=== PATIENT | male | born 1970 | race Caucasian/White ===

== ENCOUNTER 2022-01-25 14:28 | Outpatient (REF) | payer BC, SELFPAY ==
--- NOTE | ~2022-01-25 | US_ITS ---
EXAMINATION: ULTRASOUND ARTERIAL DUPLEX LOWER EXTREMITY RIGHT CLINICAL INFORMATION: Pain COMPARISON: None TECHNIQUE: Doppler color and grayscale evaluation of the veins in the right lower extremity FINDINGS: The visible luminal narrowing or vessel wall calcification is seen. The right common femoral artery is patent with normal peak systolic velocity and waveform. The right profunda is patent with normal peak systolic velocity and waveform. The right superficial femoral artery is patent with normal peak systolic velocities and waveforms. The right popliteal artery is patent with normal peak systolic velocity and waveform. The visualized right posterior tibial artery is patent with normal peak systolic velocity and waveform. There is no evidence of stenosis. US/US arterial duplex LE RT IMPRESSION: Normal arterial noninvasive exam of the right lower extremity.
== END 2022-01-25 14:29 | disposition home or self-care (01) ==
LOC: HO.US 14:28
PROVIDERS: PCP Internal Medicine; Visit Provider Internal Medicine
DX: M79.604 Pain in right leg (principal); I73.9 Peripheral vascular disease, unspecified; R07.9 Chest pain, unspecified
CPT/HCPCS: 93926

== ENCOUNTER 2022-01-26 06:33 | Outpatient (REF) | payer BC, SELFPAY ==
[2022-01-26 11:03] LABS: MANUAL DIFF FLAG NO
[2022-01-26 11:21] LABS: Alanine Aminotransferase 25 U/L (0-40); Albumin Level 4.3 g/dL (3.5-5.0); Alkaline Phosphatase 76 U/L (39-117); Anion Gap 12 (12-20); Aspartate Amino Transferase 22 U/L (5-37); Bilirubin Total 0.6 mg/dL (0.0-1.0); Blood Urea Nitrogen 17 mg/dL (9-16); Calcium 8.7 mg/dL (8.4-10.2); Carbon Dioxide 24 mmol/L (22-29); Chloride 105 mmol/L (96-108); Cholesterol 209 mg/dL; Estimated Glomerular Filt Rate > 60; Glucose Fasting 95 mg/dL (60-99); HDL Cholesterol 48 mg/dL; LDL Cholesterol Calculated 147 mg/dl; Potassium 4.3 mmol/L (3.3-5.1); Sodium 137 mmol/L (135-145); Total Protein 6.9 g/dL (6.5-8.0); Triglycerides 72 mg/dL
[2022-01-26 11:23] LABS: Basophils Absolute Auto 0.1 X10*3/uL (0.0-0.2); Basophils Percent Auto 0.8 % (0-2); Eosinophils Absolute Auto 0.4 X10*3/uL (0.0-0.4); Eosinophils Percent Auto 6.6 % (0-4); Hematocrit 41.6 % (42.0-52.0); Hemoglobin 14.7 g/dl (14.0-18.0); Imm Gran Abs Auto 0.01 X10*3/uL (0.00-0.03); Imm Gran Pct Auto 0.2 % (0.0-0.4); Lymphocytes Absolute Auto 2.1 X10*3/uL (1.2-4.9); Lymphocytes Percent Auto 33.1 % (20-40); Mean Corpuscular HGB Conc 35.3 g/dl (31.0-36.0); Mean Corpuscular Volume 87.8 fL (80.0-98.0); Mean Platelet Volume 9.4 fL (9.4-12.4); Monocytes Absolute Auto 0.9 X10*3/uL (0.1-1.2); Monocytes Percent Auto 14.2 % (2-11); Neutrophils Absolute Auto 2.9 x10*3/uL (2.0-8.3); Neutrophils Percent Auto 45.1 % (45-73); Platelet Count 179 X10*3/uL (160-400); Red Blood Count 4.74 X10*6/uL (4.60-5.80); Red Cell Distribution Width 11.7 % (11.0-16.0); White Blood Count 6.3 X10*3/uL (4.8-10.8)
[2022-01-26 11:44] LABS: PSA,Total (Free>4and<10) 0.43 ng/mL (0.00-4.00)
== END 2022-01-26 06:34 | disposition home or self-care (01) ==
LOC: HO.HMGCLDS 06:33
PROVIDERS: Visit Provider Internal Medicine
DX: Z12.5 Encounter for screening for malignant neoplasm of prostate (principal); M79.604 Pain in right leg; R07.9 Chest pain, unspecified
CPT/HCPCS: 36415; 80053; 80061; 84153; 85025

== ENCOUNTER 2022-02-28 15:57 | Outpatient (REF) | payer BC, SELFPAY ==
--- NOTE | ~2022-02-28 | XR_ITS ---
EXAMINATION: LUMBAR SPINE AND RIGHT KNEE CLINICAL INFORMATION: Right knee pain. Sciatica. COMPARISON: None TECHNIQUE: Lumbar spine 3 views right knee 2 views. FINDINGS: LUMBAR SPINE: There is maintained lumbar lordosis. The vertebral heights, alignment and disc heights are normal. No visible acute fracture, dislocation or subluxation seen. There is mild ventral endplate spondylosis. No lytic or sclerotic process seen. The soft tissues are normal. RIGHT KNEE: The tricompartment joint space is maintained normal. No bony erosive changes seen. There are no loose bodies. No abnormal suprapatellar joint effusion. XR/XR knee RT 2V IMPRESSION: Unremarkable lumbar spine exam.
--- NOTE | ~2022-02-28 | XR_ITS ---
EXAMINATION: LUMBAR SPINE AND RIGHT KNEE CLINICAL INFORMATION: Right knee pain. Sciatica. COMPARISON: None TECHNIQUE: Lumbar spine 3 views right knee 2 views. FINDINGS: LUMBAR SPINE: There is maintained lumbar lordosis. The vertebral heights, alignment and disc heights are normal. No visible acute fracture, dislocation or subluxation seen. There is mild ventral endplate spondylosis. No lytic or sclerotic process seen. The soft tissues are normal. RIGHT KNEE: The tricompartment joint space is maintained normal. No bony erosive changes seen. There are no loose bodies. No abnormal suprapatellar joint effusion. XR/XR lumbar spine 2-3V IMPRESSION: Unremarkable lumbar spine exam.
--- NOTE | ~2022-02-28 | XR_ITS ---
EXAMINATION: XR CHEST CLINICAL INFORMATION: Chest pain COMPARISON: None TECHNIQUE: 2 views of the chest were obtained. FINDINGS: Very slight bronchial thickening which can be seen in setting of infectious/inflammatory etiology. No pneumothorax. Trachea is midline. Cardiomediastinal silhouette is not enlarged. No large pleural effusion. Degenerative changes of the thoracolumbar spine. Soft tissues are unremarkable XR/XR chest 2V IMPRESSION: Very slight bronchial thickening which can be seen in setting of infectious/inflammatory etiology.
== END 2022-02-28 15:58 | disposition home or self-care (01) ==
LOC: HO.HMGCX 15:57
PROVIDERS: PCP Internal Medicine; Visit Provider Internal Medicine
DX: R07.9 Chest pain, unspecified (principal); I73.9 Peripheral vascular disease, unspecified; M54.30 Sciatica, unspecified side; M25.561 Pain in right knee
CPT/HCPCS: 71046; 72100; 73560

== ENCOUNTER 2023-02-04 06:01 | Outpatient (REF) | payer BC, SELFPAY ==
[2023-02-04 11:42] LABS: Cholesterol 211 mg/dL; HDL Cholesterol 51 mg/dL; LDL Cholesterol Calculated 141 mg/dl; Triglycerides 96 mg/dL
[2023-02-07 05:44] LABS: Lyme Abs Screen <0.90 index
== END 2023-02-04 06:02 | disposition home or self-care (01) ==
LOC: HO.HMGCLDS 06:01
PROVIDERS: PCP Internal Medicine; Visit Provider Internal Medicine
DX: Z00.00 Encounter for general adult medical examination without abnormal findings (principal); T14.8XXA Other injury of unspecified body region, initial encounter; W57.XXXA Bitten or stung by nonvenomous insect and other nonvenomous arthropods, initial encounter
CPT/HCPCS: 36415; 80061; 86617; 86618

== ENCOUNTER 2023-08-01 09:56 | Outpatient (AMB) | payer BC, SELFPAY ==
--- NOTE | 2023-08-01 09:59 | MHC.PC.OV ---
Vital Signs 08/01/23 10:00 Height 5 ft 6.14 in Weight 220 lb BMI 35.4 BP 124/72 Blood Pressure Location Lt brachial Position Sitting Pulse 102 H Pulse Source Pulse Oximeter Pulse Oximetry (%) 98 Oxygen Delivery Method Room Air Intake Visit Reasons: lump/Mole on head Intake Note: Pt is here today for a sick visit. Pt c/o hearing problem and mole on the R side of his head. Allergies No Known Allergies Allergy (Verified 08/01/23 10:02) Medication List - Last Reconciled 08/01/23 by Vinita Stone MD No Known Home Meds Tobacco use date assessed: 08/01/23 Dental Screening Dental Screen Date: 08/01/23 Did you have a dental visit in the last 12 months?: Yes Did you have a dental problem in the last 6 months where you did not have access to dental care?: No Was dental information given to patient?: Patient has dentist HPI lump/Mole on head HPI Details Patient complains of irritated skin growth the top of his head for 6 months. Patient reports decreased hearing in the left ear for few months. Patient denies change in balance, headaches, ear pain or discharge. [facility] Family History Mother Diabetes Father No problems noted. Sister Breast cancer Social History Housing: House Patient Tobacco Use Status: Never used Tobacco e-Cigarette/Vaping Use: Never Used Current occupational status: employed Cognitive needs: No Hearing needs: No Vision needs: No Questionnaire PHQ-9 Over the last 2 weeks, how often have you been bothered by any of the following problems? 1. Little interest or pleasure in doing things: not at all 2. Feeling down, depressed, or hopeless: not at all 3. Trouble falling or staying asleep, or sleeping too much: not at all 4. Feeling tired or having little energy: not at all 5. Poor appetite or overeating: not at all 6. Feeling bad about yourself - or that you are a failure or have let yourself or your family down: not at all 7. Trouble concentrating on things, such as reading the newspaper or watching television: not at all 8. Moving or speaking so slowly that other people could have noticed. Or the opposite - being so fidgety or restless that you have been moving around a lot more than usual: not at all 9. Thoughts that you would be better off or of hurting yourself in some way: not at all Total score: 0 Depression Screening Interpretation: Negative Depression Screening Done: Yes Source: Developed by Drs. London Crawley, Bri Batres, Tonio Schmidt and colleagues, with an educational nafisa from [employer]. Thrive Questionnaire Date Thrive assessed: 08/01/23 I am a: Patient What is your living situation today?: I have a steady place to live Within the past 12 months, did the food you bought not last and you didn't have the money to get more?: Never true Within the past 12 months, did you worry whether your food would run out before you got money to buy more?: Never true Do you have trouble paying for medicines?: No Do you have trouble getting transportation to medical appointments?: No Do you have trouble paying your heating and electricity bill?: No Do you have trouble taking care of your child, family member or friend?: No Do you have trouble with day-to-day activities such as bathing, preparing meals, shopping, managing finances, etc.?: No Are you currently unemployed and looking for a job?: No Are you interested in more education?: No Please select the resources that you would like help with: None Currently or been in a relationship where the following occur: no concerns reported AUDIT C Alcohol Use Questionnaire (AUDIT-C) 1. How often do you have a drink containing alcohol?: Never 3. How often do you have six or more drinks on one occasion?: Never Total Score: 0 MURRAY-7 AMB Questionnaire MURRAY-7 Date MURRAY - 7 assessed: 08/01/23 Feeling nervous, anxious, or on edge: 0 = Not at all Not being able to stop or control worryin = Not at all Worrying too much about different things: 0 = Not at all Trouble relaxin = Not at all Being so restless that it is hard to sit still: 0 = Not at all Becoming easily annoyed or irritable: 0 = Not at all Feeling afraid as if something awful might happen: 0 = Not at all Total MURRAY-7 score (0-4 normal; 5-9 mild; 10-14 moderate; 15-21 severe): 0 Source: Developed by Drs. London Crawley, Bri Batres, Tonio Schmidt and colleagues, with an educational nafisa from [employer]. Review of Systems Const All systems reviewed & are unremarkable except as noted in HPI and below Reports no additional complaints Eyes Reports no additional complaints ENT Reports no additional complaints Card Reports no additional complaints Resp Reports no additional complaints GI Reports no additional complaints Reports no additional complaints Physical exam (Primary Care) Vital Signs: Last Vital Signs Pulse 102 H 08/01/23 10:00 BP 124/72 08/01/23 10:00 Pulse Ox 98 08/01/23 10:00 Oxygen Delivery Method Room Air 08/01/23 10:00 BMI result Body Mass Index 35.4 Tobacco/Smoking Status: Tobacco use Status Tobacco use date assessed 08/01/23 08/01/23 10:05 Patient Tobacco Use Status Never used Tobacco 08/01/23 10:05 e-Cigarette/Vaping Use Never Used 08/01/23 10:05 PHQ-9: PHQ-9 Score PHQ-9: Total score 0 08/01/23 10:07 Depression Screening Interpretation: Negative Thrive Assessment: Date of Thrive Assessment Date Thrive assessed 08/01/23 08/01/23 10:07 Currently or been in a relationship where the following occur: no concerns reported Const General: no acute distress HENMT Other: 1 cm scaly irritated lesion on the frontal hair line Ears: TM's normal bilaterally, Robert (lateralized to Left) and Rinne test Face and sinus: Yes normal facial exam Neck Neck: Yes no lymphadenopathy and Yes supple Resp Effort & Inspection: normal respiratory effort Auscultation: clear to auscultation bilaterally Cardio Rhythm: regular rhythm Heart sounds: S1 normal heart sound present and S2 normal heart sound present Assessment and Plan Assessment & Plan (1) Irritated nevus: Code(s): D22.9 - Melanocytic nevi, unspecified Plan: Referred to dermatology (2) Hearing loss: Code(s): H91.90 - Unspecified hearing loss, unspecified ear Plan: Obtain hearing evaluation (3) Annual physical exam: Code(s): Z00.00 - Encounter for general adult medical examination without abnormal findings Plan: Patient will return for physical in 6 months with a fasting labs before Orders: Orders UA w Microscopic 6 Months Z00.00 - Encounter for general adult medical examination without abnormal findings Lipid Panel 6 Months Z00.00 - Encounter for general adult medical examination without abnormal findings Comprehensive [place]. Panel Fast 6 Months Z00.00 - Encounter for general adult medical examination without abnormal findings Complete Blood Count Auto Diff 6 Months Z00.00 - Encounter for general adult medical examination without abnormal findings PSA,Total (Free>4and<10) 6 Months Z00.00 - Encounter for general adult medical examination without abnormal findings Referrals Dermatology Referral D22.9 - Melanocytic nevi, unspecified Speech and Hearing Referral H91.90 - Unspecified hearing loss, unspecified ear Coding Level of Care Code Est Pt Level 3 (30890) Diagnoses Irritated nevus D22.9 Hearing loss H91.90 Annual physical exam Z00.00
[2023-08-01 10:00] VITALS: BP 124/72; PULSE 102; O2SAT 98; BMI 35.4
== END 2023-08-01 10:42 | disposition home or self-care (01) ==
PROVIDERS: PCP Internal Medicine; Visit Provider Internal Medicine
DX: D22.9 Melanocytic nevi, unspecified (principal); H91.90 Unspecified hearing loss, unspecified ear; Z00.00 Encounter for general adult medical examination without abnormal findings
CPT/HCPCS: 99213

== ENCOUNTER 2023-11-25 14:54 | Outpatient (REF) | payer BC, SELFPAY | END 2023-11-25 14:55 | disposition home or self-care (01) | LOC: HO.SH 14:54 | PROVIDERS: Visit Provider Internal Medicine | DX: Z01.118 Encounter for examination of ears and hearing with other abnormal findings (principal); H90.3 Sensorineural hearing loss, bilateral | CPT/HCPCS: 92553; 92567 ==

== ENCOUNTER 2024-01-21 06:01 | Outpatient (REF) | payer BC, SELFPAY ==
[2024-01-21 11:09] LABS: MANUAL DIFF FLAG NO
[2024-01-21 11:31] LABS: Basophils Percent Auto 0.5 % (0-2); Eosinophils Absolute Auto 0.6 X10*3/uL (0.0-0.4); Eosinophils Percent Auto 7.4 % (0-4); Hematocrit 42.6 % (42.0-52.0); Hemoglobin 15.2 g/dl (14.0-18.0); Imm Gran Abs Auto 0.02 X10*3/uL (0.00-0.03); Imm Gran Pct Auto 0.3 % (0.0-0.4); Lymphocytes Percent Auto 26.5 % (20-40); Mean Corpuscular HGB Conc 35.7 g/dl (31.0-36.0); Mean Corpuscular Volume 86.9 fL (80.0-98.0); Monocytes Absolute Auto 0.9 X10*3/uL (0.1-1.2); Monocytes Percent Auto 12.2 % (2-11); Neutrophils Percent Auto 53.1 % (45-73); Platelet Count 181 X10*3/uL (160-400); Red Cell Distribution Width 11.9 % (11.0-16.0); White Blood Count 7.5 X10*3/uL (4.8-10.8)
[2024-01-21 11:32] LABS: Appearance Urine Clear; Color Urine Yellow; Glucose Urine UA Negative (Negative); Leukocyte Esterase Urine Negative (Negative); Nitrite Urine Negative (Negative); Specific Gravity - Urine 1.025 (1.005-1.025); Urine Blood Negative (Negative); Urine Ketones Negative (Negative); Urine Protein Negative (Neg-Trace)
[2024-01-21 11:39] LABS: Bacteria Urine None Seen (None Seen); Hyaline Casts Urine 0-2 /LPF (0-2); RBC Urine 0-2 /HPF (0-2); Squamous Epithelial Cell Urine 0-2 /HPF (0-2); WBC Urine 0-5 /HPF (0-5)
[2024-01-21 11:56] LABS: PSA,Total (Free>4and<10) 0.43 ng/mL (0.00-4.00)
[2024-01-21 12:08] LABS: Alanine Aminotransferase 40 U/L (0-40); Albumin Level 4.5 g/dL (3.5-5.0); Alkaline Phosphatase 93 U/L (39-117); Anion Gap 13 (12-20); Aspartate Amino Transferase 36 U/L (5-37); Bilirubin Total 0.6 mg/dL (0.0-1.0); Blood Urea Nitrogen 18 mg/dL (9-16); Calcium 9.4 mg/dL (8.4-10.2); Carbon Dioxide 26 mmol/L (22-29); Chloride 106 mmol/L (96-108); Cholesterol 198 mg/dL (<200); Estimated Glomerular Filt Rate > 60; Glucose Fasting 102 mg/dL (60-99); HDL Cholesterol 50 mg/dL (>40); LDL Cholesterol Calculated 127 mg/dL (<100); Potassium 3.9 mmol/L (3.3-5.1); Sodium 141 mmol/L (135-145); Total Protein 7.3 g/dL (6.5-8.0); Triglycerides 107 mg/dL (<150)
== END 2024-01-21 06:02 | disposition home or self-care (01) ==
LOC: HO.HMGCLDS 06:01
PROVIDERS: PCP Internal Medicine; Visit Provider Internal Medicine
DX: Z00.00 Encounter for general adult medical examination without abnormal findings (principal); Z12.5 Encounter for screening for malignant neoplasm of prostate
CPT/HCPCS: 36415; 80053; 80061; 81001; 84153; 85025

== ENCOUNTER 2024-02-02 12:19 | Outpatient (AMB) | payer BC, SELFPAY ==
--- NOTE | 2024-02-02 12:58 | MHC.PC.OV ---
Vital Signs 02/02/24 13:00 Height 5 ft 6.14 in Weight 227 lb BMI 36.5 BP 122/80 Blood Pressure Location Lt brachial Position Sitting Pulse 97 Pulse Source Pulse Oximeter Pulse Oximetry (%) 97 Oxygen Delivery Method Room Air Intake Visit Reasons: Annual PE Intake Note: pt is here for annual PE. Cologuard 04/01/22 Allergies No Known Allergies Allergy (Verified 02/02/24 12:59) Medication List - Last Reconciled 02/02/24 by Vinita Stone MD meloxicam 15 mg PO DAILY Tobacco use date assessed: 02/02/24 Dental Screening Dental Screen Date: 08/01/23 HPI Annual PE HPI Details Patient presents for physical. He complains of intermittent lower back pain worse after lifting and bending down a lot. Patient denies pain radiating to lower extremities weakness or numbness in extremities, change in bladder or bowel function PFSH Surgical History No pertinent past surgical history Family History Mother Diabetes Father No problems noted. Sister Breast cancer Social History Housing: House Patient Tobacco Use Status: Never used Tobacco e-Cigarette/Vaping Use: Never Used Current occupational status: employed Cognitive needs: No Hearing needs: No Vision needs: No Questionnaire Thrive Questionnaire Date Thrive assessed: 08/01/23 AUDIT C Alcohol Use Questionnaire (AUDIT-C) 1. How often do you have a drink containing alcohol?: Never 3. How often do you have six or more drinks on one occasion?: Never Total Score: 0 MURRAY-7 AMB Questionnaire MURRAY-7 Date MURRAY - 7 assessed: 08/01/23 Source: Developed by Drs. London Crawley, Bri Batres, Tonio Schmidt and colleagues, with an educational nafisa from [employer]. Review of Systems Const All systems reviewed & are unremarkable except as noted in HPI and below Reports no additional complaints Eyes Reports no additional complaints ENT Reports no additional complaints Card Reports no additional complaints Resp Reports no additional complaints GI Reports no additional complaints Reports no additional complaints Physical exam (Primary Care) Vital Signs: Last Vital Signs Pulse 97 02/02/24 13:00 BP 122/80 02/02/24 13:00 Pulse Ox 97 02/02/24 13:00 Oxygen Delivery Method Room Air 02/02/24 13:00 BMI result Body Mass Index 36.5 Tobacco/Smoking Status: Tobacco use Status Tobacco use date assessed 02/02/24 02/02/24 13:02 Patient Tobacco Use Status Never used Tobacco 02/02/24 12:58 e-Cigarette/Vaping Use Never Used 02/02/24 12:58 Thrive Assessment: Date of Thrive Assessment Date Thrive assessed 08/01/23 02/02/24 12:58 Const General: no acute distress HENMT Head: Yes normal to inspection Ears: hearing grossly normal bilaterally Throat: Yes posterior oropharynx normal Eyes General: appearance normal, both eyes and all related structures Neck Neck: Yes no lymphadenopathy and Yes supple Resp Effort & Inspection: normal respiratory effort Auscultation: clear to auscultation bilaterally Cardio Rhythm: regular rhythm Heart sounds: S1 normal heart sound present and S2 normal heart sound present GI Inspection: Yes normal to inspection Palpation (GI): Soft to palpation Percussion: Yes normal to percussion Auscultation: normal bowel sounds Back/Spine/Pelvis Other: Decreased range of motion lumbar spine, straight leg rising 90 degrees bilaterally deep tendon reflexes 2+ bilaterally Assessment and Plan Assessment & Plan (1) Annual physical exam: Code(s): Z00.00 - Encounter for general adult medical examination without abnormal findings Plan: Well-balanced diet regular exercise weight loss discussed with the patient. (2) Chronic lower back pain: Code(s): M54.50 - Low back pain, unspecified; G89.29 - Other chronic pain Plan: Check x-ray of lumbar spine, PT was recommended patient declined. Lower back exercises were recommended. Meloxicam p.r.n. as prescribed Orders: Orders Hemoglobin A1c 1 Year Z00.00 - Encounter for general adult medical examination without abnormal findings XR lumbar spine 2-3V Today G89.29 - Other chronic pain, M54.50 - Low back pain, unspecified Comprehensive [place]. Panel Fast 1 Year Z00.00 - Encounter for general adult medical examination without abnormal findings Complete Blood Count Auto Diff 1 Year Z00.00 - Encounter for general adult medical examination without abnormal findings Lipid Panel 1 Year Z00.00 - Encounter for general adult medical examination without abnormal findings PSA,Total (Free>4and<10) 1 Year Z00.00 - Encounter for general adult medical examination without abnormal findings UA w Microscopic 1 Year Z00.00 - Encounter for general adult medical examination without abnormal findings Medications: New meloxicam 15 mg PO DAILY 30 tabs 0RF meloxicam 15 mg PO DAILY 30 tabs 1RF Coding Level of Care Code Est Pt Prev Care 40-64y(21028) Diagnoses Annual physical exam Z00.00 Chronic lower back pain M54.50; G89.29
[2024-02-02 13:00] VITALS: BP 122/80; PULSE 97; O2SAT 97; BMI 36.5
== END 2024-02-02 15:34 | disposition home or self-care (01) ==
LOC: HO.HMGC 12:19
PROVIDERS: PCP Internal Medicine; Visit Provider Internal Medicine
DX: Z00.00 Encounter for general adult medical examination without abnormal findings (principal); M54.50 Low back pain, unspecified; G89.29 Other chronic pain
CPT/HCPCS: 99396

== ENCOUNTER 2024-02-02 13:38 | Outpatient (REF) | payer BC, SELFPAY ==
--- NOTE | ~2024-02-02 | XR_ITS ---
EXAMINATION: XR LUMBOSACRAL SPINE CLINICAL INFORMATION: Low back pain. COMPARISON: 02/28/2022 TECHNIQUE: Three views of the lumbosacral spine. FINDINGS: Mild multilevel lumbar spondylosis with mild loss of disc space height at L4-L5 and L5-S1. Facet arthritis in the lower lumbar spine. XR/XR lumbar spine 2-3V IMPRESSION: Mild multilevel lumbar spondylosis.
== END 2024-02-02 13:39 | disposition home or self-care (01) ==
LOC: HO.HMGCX 13:38
PROVIDERS: PCP Internal Medicine; Visit Provider Internal Medicine
DX: M54.50 Low back pain, unspecified (principal); G89.29 Other chronic pain
CPT/HCPCS: 72100

== ENCOUNTER 2024-05-19 16:00 | Outpatient (RCR) | payer BC, SELFPAY ==
--- NOTE | 2024-04-09 07:45 | MHC.PT.EP ---
[facility] Office [place] Office [place] Office [address] [phone] F: [phone] F: [phone] F: [phone] F: [phone] Physical Therapy Plan of Care Date of Evaluation: 04/09/24 Date of Surgery: n/a Diagnosis: chronic low back pain Assessment: Patient is a 54 year old male presenting to PT with complaints of pain in his low back. Pt reports onset of pain began about 1 year ago due to insidious onset. He presents today with impairments in pain, lumbar ROM, core strength, hip strength, increase tissue density to lumbar paraspinals. 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 Pt expresses long-term goal of reducing pain, and is motivated to work towards this in PT. Clinical presentation today is most consistent with signs and sx associated with low back pain and pt will benefit from skilled PT 2 week x 4 weeks to address the following problems and impairments noted upon evaluation: pain, lumbar ROM, core strength, hip strength, increased muscle density to lumbar paraspinals. These problems limit the patient with the following functional activities: bending, lifting, work, ADLs, transfers. The prescribed treatment plan of care is medically necessary. Co-morbidities of none were identified and taken into considerations of plan of care. Pt was educated on HEP, role of PT, prognosis, POC. Frequency and Duration: The patient will be seen 2 x week x 4 weeks Short Term Goals: Pt will demonstrate improved hip MMT strength by 1/3 grade in 2 weeks for improved lumbopelvic stability. Pt will demonstrate ability to move through lumbar ROM with min to no pain in 2 weeks. Pt will demonstrate decreased muscle density to lumbar paraspinals in 2 weeks. Senior Care Goals: Pt will demonstrate improved [place] score by 10% in 4 weeks for improved functional mobility. Pt will demonstrate ability to transfer without pain in 4 weeks for return to PLOF. Pt will demonstrate ability to bend and lift with min to no pain in 4 weeks for improved tolerance to ADLs. Treatment Plan: Modalities to reduce pain, spasms and effusion. Manual therapy to restore motion and function. Therapeutic exercise to improve strength and flexibility. Neuromuscular re-education for posture and balance. Therapeutic activities to return to functional activities of daily living. Electronically signed by: Susie Chau PT, DPT, ATC Please sign and return to therapist. Thank you for your referral.
--- NOTE | 2024-05-19 16:54 | MHC.PT.DC ---
[facility] [place] Office [place] Office [place] Office [address] [phone] F: [phone] F: [phone] F: [phone] F: [phone] Physical Therapy Discharge Report Diagnosis: chronic low back pain Date of Surgery: n/a Date of Evaluation: 04/09/24 Date of Discharge: 05/19/24 Treatments to Date: 7 Cancellations to Date: 0 No Shows to Date: 0 Discharge Status: Improved Function Independent with HEP Discharge Summary: 05/19/2024: He has been making progress since start of care. He gets relief from his exercises although consistently always has ongoing lower level pain. This can intensify with certain motions or activities. We discussed that due to the nature of his job this may be his baseline in terms of pain. I advised however that if he is not happy with his progress or has new/worsening sx he should follow up with his PCP for further imaging and management of pain. He is understanding of this. Plan is to d/c to HEP which he is in agreement with. Electronically signed by: Susie Chau, PT, DPT, ATC Please sign and return to therapist. Thank you for your referral.
== END 2024-05-19 16:54 | disposition home or self-care (01) ==
LOC: HO.PTCHIC 16:00
PROVIDERS: PCP Internal Medicine; Visit Provider Internal Medicine
DX: M54.50 Low back pain, unspecified (principal); G89.29 Other chronic pain
CPT/HCPCS: 97110; 97140; 97161

== ENCOUNTER 2024-06-18 13:18 | Outpatient (AMB) | payer BC, SELFPAY ==
--- NOTE | 2024-06-18 13:31 | A.OFFPC_ITS ---
Vital Signs 06/18/24 13:40 Height 5 ft 6 in Weight 225 lb BMI 36.3 BP 122/70 Blood Pressure Location Lt brachial Position Sitting Pulse 102 H Pulse Source Pulse Oximeter Pulse Oximetry (%) 95 Oxygen Delivery Method Room Air Intake Visit Reasons: runny nose, lump on the head Intake Note: Pt is here today for a sick visit. Pt c/o runny nose for 6 weeks and lump on his head. Allergies No Known Allergies Allergy (Verified 06/18/24 13:44) Medication List - Last Reconciled 06/18/24 by Vinita Stone MD prednisone 20 mg PO DAILY Tobacco use date assessed: 06/18/24 Dental Screening Dental Screen Date: 08/01/23 HPI runny nose, lump on the head HPI Details Pt c/o 6 weeks of nasal congestion. Patient use decongestant nasal drops for a week then Claritin for 2 weeks without significant improvement. Patient denies fever chills facial pain postnasal drip cough. he denies any change in his environment. [facility] Surgical History No pertinent past surgical history Family History Mother Diabetes Father No problems noted. Sister Breast cancer Social History Housing: House Patient Tobacco Use Status: Never used Tobacco e-Cigarette/Vaping Use: Never Used Current occupational status: employed Cognitive needs: No Hearing needs: No Vision needs: No Questionnaire Thrive Questionnaire Date Thrive assessed: 08/01/23 MURRAY-7 AMB Questionnaire MURRAY-7 Date MURRAY - 7 assessed: 08/01/23 Source: Developed by Drs. London Crawley, Bri Batres, Tonio Schmidt and colleagues, with an educational nafisa from [employer]. Review of Systems Const All systems reviewed & are unremarkable except as noted in HPI and below ENT Reports no additional complaints Card Reports no additional complaints Resp Reports no additional complaints GI Reports no additional complaints Reports no additional complaints Physical exam (Primary Care) Vital Signs: Last Vital Signs Pulse 102 H 06/18/24 13:40 BP 122/70 06/18/24 13:40 Pulse Ox 95 06/18/24 13:40 Oxygen Delivery Method Room Air 06/18/24 13:40 BMI result Body Mass Index 36.3 Tobacco/Smoking Status: Tobacco use Status Tobacco use date assessed 06/18/24 06/18/24 13:45 Patient Tobacco Use Status Never used Tobacco 06/18/24 13:31 e-Cigarette/Vaping Use Never Used 06/18/24 13:31 Thrive Assessment: Date of Thrive Assessment Date Thrive assessed 08/01/23 06/18/24 13:31 Const General: no acute distress HENMT Head: Yes normal to inspection Ears: TM's normal bilaterally General nose exam: Normal external nose present, Abnormal mucous membranes and turbinates present pale and no nasal discharge noted Face and sinus: Yes normal facial exam and No sinus tenderness Mouth: Normal oral and palatal mucosa present Throat: No postnasal drainage Eyes General: appearance normal, both eyes and all related structures Neck Neck: Yes no lymphadenopathy and Yes supple Resp Effort & Inspection: normal respiratory effort Auscultation: clear to auscultation bilaterally Cardio Rhythm: regular rhythm Heart sounds: S1 normal heart sound present and S2 normal heart sound present Coding Level of Care Code Est Pt Level 3 (83044) Diagnoses Dysplastic nevi D23.9 Rhinitis medicamentosa J31.0; T48.5X5A Assessment & Plan Assessment & Plan (1) Dysplastic nevi: Comment: on scalp Code(s): D23.9 - Other benign neoplasm of skin, unspecified Category: Medical Plan: refer to dermatology (2) Rhinitis medicamentosa: Code(s): J31.0 - Chronic rhinitis; T48.5X5A - Adverse effect of other [id number] drugs, initial encounter Category: Medical Plan: Prednisone 20 mg for 5 days Orders: Referrals Dermatology Referral D23.9 - Other benign neoplasm of skin, unspecified Medications: New prednisone 20 mg PO DAILY 5 tabs 0RF
[2024-06-18 13:40] VITALS: BP 122/70; PULSE 102; O2SAT 95; BMI 36.3
== END 2024-06-18 14:44 | disposition home or self-care (01) ==
PROVIDERS: PCP Internal Medicine; Visit Provider Internal Medicine
DX: D23.9 Other benign neoplasm of skin, unspecified (principal); J31.0 Chronic rhinitis; T48.5X5A Adverse effect of other anti-common-cold drugs, initial encounter

== ENCOUNTER 2025-02-15 06:01 | Outpatient (REF) | payer BC, SELFPAY ==
[2025-02-15 10:19] LABS: Appearance Urine Clear; Glucose Urine UA Negative (Negative); PH 6.5 (5.0-9.0); Specific Gravity - Urine 1.010 (1.005-1.025)
[2025-02-15 10:36] LABS: MANUAL DIFF FLAG NO
[2025-02-15 10:38] LABS: Hematocrit 43.3 % (42.0-52.0); Hemoglobin 15.0 g/dl (14.0-18.0); Imm Gran Abs Auto 0.03 X10*3/uL (0.00-0.03); Imm Gran Pct Auto 0.4 % (0.0-0.4); Lymphocytes Absolute Auto 2.1 X10*3/uL (1.2-4.9); Mean Corpuscular HGB Conc 34.6 g/dl (31.0-36.0); Mean Corpuscular Hemoglobin 30.6 pg (27.0-33.0); Mean Corpuscular Volume 88.4 fL (80.0-98.0); NRBC Abs Auto 0.000 X10*3/uL (0.0-0.012); NRBC Pct Auto 0.0 /100WBC (0.0-0.2); Platelet Count 186 X10*3/uL (160-400); Red Blood Count 4.90 X10*6/uL (4.60-5.80); White Blood Count 6.8 X10*3/uL (4.8-10.8)
[2025-02-15 10:46] LABS: Hemoglobin A1C 119.1818 umol/L; Total Hemoglobin (HGBA1C) 3892.8727 umol/L
[2025-02-15 10:52] LABS: Alanine Aminotransferase 43 U/L (0-40); Albumin Level 4.6 g/dL (3.5-5.0); Alkaline Phosphatase 99 U/L (39-117); Anion Gap 12 (12-20); Aspartate Amino Transferase 40 U/L (5-37); Blood Urea Nitrogen 11 mg/dL (9-16); Calcium 8.8 mg/dL (8.4-10.2); Carbon Dioxide 25 mmol/L (22-29); Chloride 108 mmol/L (96-108); Cholesterol 178 mg/dL (<200); Estimated Glomerular Filt Rate > 60; HDL Cholesterol 48 mg/dL (>40); Potassium 3.9 mmol/L (3.3-5.1); Sodium 141 mmol/L (135-145); Total Protein 7.2 g/dL (6.5-8.0); Triglycerides 88 mg/dL (<150)
[2025-02-15 11:11] LABS: PSA,Total (Free>4and<10) 0.49 ng/mL (0.00-4.00)
== END 2025-02-15 06:02 | disposition home or self-care (01) ==
LOC: HO.HMGCLDS 06:01
PROVIDERS: PCP Internal Medicine; Visit Provider Internal Medicine
DX: Z00.00 Encounter for general adult medical examination without abnormal findings (principal); Z12.5 Encounter for screening for malignant neoplasm of prostate; Z13.6 Encounter for screening for cardiovascular disorders; R73.9 Hyperglycemia, unspecified
CPT/HCPCS: 36415; 80053; 80061; 81001; 83036; 84153; 85025

== ENCOUNTER 2025-02-24 11:51 | Outpatient (AMB) | payer BC, SELFPAY ==
[2025-02-24 11:53] VITALS: BP 114/66; PULSE 98; RESP 18; TEMP 36.7; O2SAT 97; BMI 36.6
--- NOTE | 2025-02-24 11:53 | MHC.PC.OV ---
Vital Signs 02/24/25 11:53 Height 5 ft 6 in Weight 227 lb BMI 36.6 BP 114/66 Blood Pressure Location Lt brachial Position Sitting Respiration 18 Pulse 98 Pulse Source Pulse Oximeter Temp 98.0 F Temp Source Oral Pulse Oximetry (%) 97 Oxygen Delivery Method Room Air Intake Visit Reasons: Annual PE- due for Cologuard re-screening 03/2025 Intake Note: Pt is here today for PE. Allergies No Known Allergies Allergy (Verified 02/24/25 11:54) Medication List - Last Reconciled 02/24/25 by Vinita Stone MD prednisone 20 mg PO DAILY Tobacco use date assessed: 02/24/25 Dental Screening Dental Screen Date: 02/24/25 Did you have a dental visit in the last 12 months?: Yes Did you have a dental problem in the last 6 months where you did not have access to dental care?: No Was dental information given to patient?: Patient has dentist HPI Annual PE- due for Cologuard re-screening 03/2025 HPI Details Pt presents for PE. Pt c/o persistent nasal congestion for 1 year. Pt denies using OTC nasal decongestant. Patient denies sneezing itchy eyes or nasal discharge. [facility] Medical History (Updated 02/24/25 @ 12:34 by Vinita Stone MD) Colon cancer screening Annual physical exam Surgical History No pertinent past surgical history Family History Mother Diabetes Father No problems noted. Sister Breast cancer Social History Housing: House Patient Tobacco Use Status: Former Tobacco user e-Cigarette/Vaping Use: Never Used Second Hand Smoke Exposure: No service: No Current occupational status: employed Cognitive needs: No Hearing needs: No Vision needs: No Questionnaire PHQ-9 Over the last 2 weeks, how often have you been bothered by any of the following problems? 1. Little interest or pleasure in doing things: not at all 2. Feeling down, depressed, or hopeless: not at all 3. Trouble falling or staying asleep, or sleeping too much: not at all 4. Feeling tired or having little energy: not at all 5. Poor appetite or overeating: not at all 6. Feeling bad about yourself - or that you are a failure or have let yourself or your family down: not at all 7. Trouble concentrating on things, such as reading the newspaper or watching television: not at all 8. Moving or speaking so slowly that other people could have noticed. Or the opposite - being so fidgety or restless that you have been moving around a lot more than usual: not at all 9. Thoughts that you would be better off or of hurting yourself in some way: not at all Total score: 0 Depression Screening Interpretation: Negative Depression Screening Done: Yes 15853 - PHQ-9 Billing: Yes Source: Developed by Drs. London Crawley, Bri Batres, Tonio Schmidt and colleagues, with an educational nafisa from [employer]. Thrive Questionnaire Date Thrive assessed: 02/24/25 I am a: Patient What is your living situation today?: I have a steady place to live Within the past 12 months, did the food you bought not last and you didn't have the money to get more?: Never true Within the past 12 months, did you worry whether your food would run out before you got money to buy more?: Never true Do you have trouble paying for medicines?: No Do you have trouble getting transportation to medical appointments?: No Do you have trouble paying your heating and electricity bill?: No Do you have trouble taking care of your child, family member or friend?: No Do you have trouble with day-to-day activities such as bathing, preparing meals, shopping, managing finances, etc.?: No Are you currently unemployed and looking for a job?: No Are you interested in more education?: No Please select the resources that you would like help with: None THRIVE Score: 0 AUDIT C Alcohol Use Questionnaire (AUDIT-C) 1. How often do you have a drink containing alcohol?: Never 3. How often do you have six or more drinks on one occasion?: Never Total Score: 0 MURRAY-7 AMB Questionnaire MURRAY-7 Date MURRAY - 7 assessed: 02/24/25 Feeling nervous, anxious, or on edge: 0 = Not at all Not being able to stop or control worryin = Not at all Worrying too much about different things: 0 = Not at all Trouble relaxin = Not at all Being so restless that it is hard to sit still: 0 = Not at all Becoming easily annoyed or irritable: 0 = Not at all Feeling afraid as if something awful might happen: 0 = Not at all Total MURRAY-7 score (0-4 normal; 5-9 mild; 10-14 moderate; 15-21 severe): 0 Source: Developed by Drs. London Crawley, Bri Batres, Tonio Schmidt and colleagues, with an educational nafisa from [employer]. MURRAY-7 Assessment Billing MURRAY-7 Assessment Tool: MURRAY-7 Assessment 70341 Review of Systems Const All systems reviewed & are unremarkable except as noted in HPI and below Eyes Reports no additional complaints ENT Reports no additional complaints Card Reports no additional complaints Resp Reports no additional complaints GI Reports no additional complaints Reports no additional complaints Physical exam (Primary Care) Vital Signs: Last Vital Signs Temp 98.0 F 02/24/25 11:53 Pulse 98 02/24/25 11:53 Resp 18 02/24/25 11:53 BP 114/66 02/24/25 11:53 Pulse Ox 97 02/24/25 11:53 Oxygen Delivery Method Room Air 02/24/25 11:53 BMI result Body Mass Index 36.6 Tobacco/Smoking Status: Tobacco use Status Tobacco use date assessed 02/24/25 02/24/25 11:58 Patient Tobacco Use Status Former Tobacco user 02/24/25 11:58 e-Cigarette/Vaping Use Never Used 02/24/25 11:54 PHQ-9: PHQ-9 Score PHQ-9: Total score 0 02/24/25 11:58 Depression Screening Interpretation: Negative Thrive Assessment: Date of Thrive Assessment Date Thrive assessed 02/24/25 02/24/25 11:58 Const General: no acute distress HENMT Head: Yes normal to inspection Ears: hearing grossly normal bilaterally General nose exam: No nasal discharge present and Abnormal mucous membranes and turbinates present boggy and pale Face and sinus: Yes normal facial exam Mouth: Normal oral and palatal mucosa present Throat: Yes posterior oropharynx normal Eyes General: appearance normal, both eyes and all related structures Neck Neck: Yes no lymphadenopathy and Yes supple Resp Effort & Inspection: normal respiratory effort Auscultation: clear to auscultation bilaterally Cardio Rhythm: regular rhythm Heart sounds: S1 normal heart sound present and S2 normal heart sound present GI Inspection: Yes normal to inspection Palpation (GI): Soft to palpation Percussion: Yes normal to percussion Auscultation: normal bowel sounds Coding Level of Care Code Est Pt Prev Care 40-64y(46579) Diagnoses Annual physical exam Z00.00 Chronic rhinitis J31.0 Additional Codes MURRAY-7 Assessment Billing - MURRAY-7 Assessment Tool: MURRAY-7 Assessment 83231 ([id number]) PHQ-9 - 82584 - PHQ-9 Billing: Yes ([id number]) Assessment & Plan Assessment & Plan (1) Annual physical exam: Code(s): Z00.00 - Encounter for general adult medical examination without abnormal findings Category: Medical Plan: Well-balanced diet regular exercise weight loss discussed with the patient. He declined colonoscopy Cologuard will be checked. (2) Chronic rhinitis: Code(s): J31.0 - Chronic rhinitis Category: Medical Plan: For chronic rhinitis prednisone 20 mg for 7 days prescribed and patient will be referred to ENT Orders: Orders Comprehensive [facility]. Panel Fast 1 Year R73.9 - Hyperglycemia, unspecified, Z00.00 - Encounter for general adult medical examination without abnormal findings Complete Blood Count Auto Diff 1 Year R73.9 - Hyperglycemia, unspecified, Z00.00 - Encounter for general adult medical examination without abnormal findings Lipid Panel 1 Year R73.9 - Hyperglycemia, unspecified, Z00.00 - Encounter for general adult medical examination without abnormal findings Hemoglobin A1c 1 Year R73.9 - Hyperglycemia, unspecified, Z00.00 - Encounter for general adult medical examination without abnormal findings UA w Microscopic 1 Year R73.9 - Hyperglycemia, unspecified, Z00.00 - Encounter for general adult medical examination without abnormal findings PSA,Total (Free>4and<10) 1 Year R73.9 - Hyperglycemia, unspecified, Z00.00 - Encounter for general adult medical examination without abnormal findings Referrals Ear/Nose/Throat Referral J31.0 - Chronic rhinitis Cologuard Test Z12.11 - Encounter for screening for malignant neoplasm of colon, Z12.12 - Encounter for screening for malignant neoplasm of rectum Medications: New prednisone 20 mg PO DAILY 7 tabs 0RF
== END 2025-02-24 12:37 | disposition home or self-care (01) ==
LOC: HO.HMCC 11:51
PROVIDERS: PCP Internal Medicine; Visit Provider Internal Medicine
DX: Z00.00 Encounter for general adult medical examination without abnormal findings (principal); J31.0 Chronic rhinitis

== ENCOUNTER → 2025-02-24 11:51 | Outpatient (BNVA) | payer BC, SELFPAY | PROVIDERS: PCP Internal Medicine; Visit Provider Internal Medicine | DX: Z00.00 Encounter for general adult medical examination without abnormal findings (principal); J31.0 Chronic rhinitis; Z13.31 Encounter for screening for depression; Z13.39 Encounter for screening examination for other mental health and behavioral disorders | CPT/HCPCS: 96127 ==